=== PATIENT | male | born 1965 | race African-American/Black ===

== ENCOUNTER 2017-03-02 19:45 | Inpatient (IN) ==
[2017-03-02] MEDS ORDERED: DILTIAZEM 50 MG/10 ML VIAL IV ONE (19:54)
[2017-03-02] MEDS ORDERED: DILTIAZEM 50 MG/10 ML VIAL IV STA (20:00)
[2017-03-02] MEDS ORDERED: DILTIAZEM 100 MG VIAL.ADD IV ONE (20:00)
[2017-03-02] MEDS ORDERED: DILTIAZEM INJ 100 MG in SODIUM CHLORIDE 0.9% 100 ML IV SCH ×2 (20:00→23:45)
--- NOTE | 2017-03-02 20:00 | Emergency Department Note ---
Arrival - Arrival Chief Complaint: Arrhythmia/Palpitations ED Nursing Triage Note: Pt arrives via ems from home with complaints of heart racing since 1600. Pt has history of A fib. Ems administered adenosine 6/12/ 12mg with relief. Pt complains of chest pain and sob at time of triage. Denies any other complaints at this time. Mode of Arrival: Stretcher Limitations: No Limitations Source: Patient Time Seen by Provider: 03/02/17 19:50 - History of Present Illness HPI Narrative: The patient complains of palpitations with chest pain, shortness of breath and diaphoresis. This started around 1600 today. EMS noted elevated heart rate on arrival and they gave him 6, 12 and 12 of adenosine. The patient states this mostly relieved his chest pain and on arrival here he complained only of very mild chest pain. He had no nausea or vomiting. Patient has a history of atrial fibrillation and sees Dr. Payne. He is on amiodarone and Eliquis. His last episode of atrial fibrillation was more than 6 months ago. He had to be electrically cardioverted at that time. It is not clear whether he has a history of CAD. He denies any stents but says he was told at one time in the past that he might have had a light heart attack. He has a history of hypertension. He denies diabetes or high cholesterol. He is a former smoker. Allergies/Adverse Reactions: Allergies Allergy/AdvReac Type Severity Reaction Status Date / Time No Known Allergies Allergy Unverified 03/02/17 19:50 Home Medications: Home Medications Medication Instructions Recorded Confirmed Type Amiodarone HCl [Amiodarone HCl] 200 mg PO DAILY 11/18/14 11/18/14 History Apixaban [Eliquis] 5 mg PO BID 11/18/14 11/18/14 History Aspirin [Children's Aspirin] 81 mg PO QAM 11/18/14 03/02/17 History Magnesium Chloride [Slow Mag] 128 mg PO TID 11/18/14 03/02/17 History Ranitidine Tab [Zantac Tab] 150 mg PO BID 11/18/14 03/02/17 History Albuterol Sulfate [Proair HFA] 2 puff INH Q6H PRN 03/02/17 03/02/17 History Review of System - Review of System 12 point system: reviewed and no additional remarkable complaints except as stated - Review of System Constitutional: Present: diaphoresis Respiratory: Present: respiratory distress Cardiovascular: Present: chest pain, palpitations, dyspnea on exertion. Absent : edema, syncope Gastrointestinal: Absent: nausea, vomiting Medical,Surgical,& Family Hx - Medical History Cardio: History of: Cardiac Dysrhythmia, Hypertension - Surgical History Surgical History: noncontributory - Family History Family History: noncontributory - Social History Smoking Status: Never smoker Frequency of Alcohol Use: None Type of Drug Use: None Exam Physical Examination: GENERAL: Alert. No acute distress. HEENT: Normocephalic and atraumatic. There is no nasal drainage. No pharyngeal erythema or exudate. NECK: Normal inspection. Supple. No lymphadenopathy or meningismus. LUNGS: No respiratory distress. Clear to auscultation bilaterally, no wheezes, rales or rhonchi. HEART: Irregular tachycardia. 2/6 systolic murmur. ABDOMEN: Soft, nontender and nondistended with normoactive bowel sounds. BACK: Normal inspection. SKIN: Color normal. Warm and dry. EXTREMITIES: Nontender. Normal range of motion. No pedal edema. NEUROLOGICAL/PSYCHIATRIC: Alert and oriented -3 with normal mood and affect. Cranial nerves normal. No motor or sensory deficit. Vital Signs: Vital Signs Temperature 98.3 F 03/02/17 19:45 Pulse Rate 169 H 03/02/17 19:45 Respiratory Rate 16 03/02/17 21:30 Blood Pressure 151/91 03/02/17 19:45 O2 Sat by Pulse Oximetry 100 03/02/17 22:04 Course - Reevaluation(s) Reevaluation #1: The patient was given a 20 mg bolus of diltiazem on arrival and this brought his heart rate down to 100-120. He feels much better and states his chest pain is completely resolved. I am starting him on a diltiazem infusion. Time: 20:07 Reevaluation #2: After further questioning, the patient now tells me he has been off the Eliquis and the amiodarone since around November. He is only taking an 81 mg aspirin as an anticoagulant and does not think that they started him on any other antiarrhythmic. I will give him 120 of Lovenox now. Time: 20:24 Reevaluation #3: The patient has maxed out on his diltiazem infusion at 15. He continues to have a heart rate between 130 and 150. His chest pain is still resolved and he is having no symptoms at all. I have discussed patient with Dr. Michelle. I will give him Lopressor 5 mg IV every 5 minutes 3 and 50 of metoprolol p.o. We will admit him to the CCU. Time: 22:21 Results - Labs CBC & BMP: 03/02/17 19:53 03/02/17 19:53 Lab Results: I have reviewed the patients labs Labs: Laboratory Tests 03/02/17 03/02/17 03/02/17 19:53 19:53 19:53 INR 1.0 Total Bilirubin < 0.39 AST 24 ALT 25 Troponin I < 0.015 Free T4 1.40 TSH 3rd Generation 0.567 - Impressions Chest x-ray shows cardiomegaly with mild CHF. EKG shows atrial fibrillation with rapid ventricular response at 179. Nonspecific ST and T-wave abnormality. Critical Care Time Total Critical Care Time: 30 Disposition Clinical Impression: Atrial fibrillation with rapid ventricular response Case discussed with: patient Disposition: Still a Patient Condition: Stable Time of Disposition: 22:22
[2017-03-02 20:11] LABS: Basophils % 0.5 % (0.0-0.8); Eosinophils # 0.2 10*3/uL (0.0-0.87); Eosinophils % 2.9 % (0.00-10.9); Hematocrit 42.9 VOL% (42.0-52.0); Hemoglobin 13.6 GM/DL (14.0-18.0); Immature Granulocytes % 0.4 %; Immature Granulocytes Absolute 0.03 #; Lymphocytes # 2.1 10*3/uL (1.4-4.0); Lymphocytes % 25.8 % (21.2-54.2); Mean Corpuscular HGB Conc 31.7 GM/DL (32-36); Mean Corpuscular Hemoglobin 27 PG (27-34); Monocytes # 0.7 10*3/uL (0.11-0.8); Monocytes % 9.2 % (1.7-12.7); Neutrophils % 61.2 % (38.7-73.9); Platelet Count 222 T/CUMM (130-400); Red Blood Count 5.11 MC/CUMM (3.8-5.5); Red Cell Distribution Width 13.1 % (9.3-17.3); White Blood Count 8.1 T/CUMM (4-12)
[2017-03-02 20:19] LABS: PT Patient Result 10.7 SECS; Partial Thromboplastin Time 26.8 SECS (0-40)
[2017-03-02 20:26] LABS: Free T4 (Free Thyroxine) 1.4 NG/DL (0.76-1.46)
[2017-03-02] MEDS ORDERED: ENOXAPARIN 120 MG/0.8 ML SYRINGE SUBCUT STA (20:26)
[2017-03-02 20:32] LABS: Alanine Aminotransferase 25 U/L (16-61); Albumin 3.3 G/DL (3.4-5.0); Alkaline Phosphatase 115 U/L (45-117); Aspartate Amino Transferase 24 U/L (0-37); Bilirubin,Total < 0.39 MG/DL (0.2-1.0); Blood Urea Nitrogen 11 MG/DL (7-18); Calcium 8.3 MG/DL (8.5-10.1); Glucose 101 MG/DL (74-106); Osmolality,Calculated 281.1 MOS/KG (273-304); Potassium 3.5 MMOL/L (3.5-5.1); Sodium 142 MMOL/L (136-145); Thyroid Stimulating Hormone 0.567 uIU/ml (0.358-3.74); Total Protein 7.7 G/DL (6.4-8.3); Troponin I Only < 0.015 NG/ML (0.00-0.045)
[2017-03-02] MEDS ORDERED: ENOXAPARIN 120 MG/0.8 ML SYRINGE SUBCUT ONE (20:43)
[2017-03-02 21:00] LABS: Barbiturates Screen,Urine Negative (Negative); Benzodiazepines Screen,Urine Negative (Negative); Cannabinoid Screen,Urine Negative (Negative); Opiate Screen,Urine Negative (Negative); Phencyclidine Screen,Urine Negative (Negative)
[2017-03-02] MEDS ORDERED: METOPROLOL SUCCINATE XL 50 MG TABLET PO ONE (22:17)
[2017-03-02] MEDS ORDERED: METOPROLOL TARTRATE 5 MG/5 ML VIAL IV ONE ×4 (22:28→23:45)
[2017-03-02] MEDS ORDERED: METOPROLOL TARTRATE 50 MG TABLET ONE (22:28)
[2017-03-02] MEDS: METOPROLOL TARTRATE 5 MG/5 ML VIAL IV SCH ×3 (22:30→22:55)
[2017-03-02] MEDS ORDERED: MAGNESIUM SULF RIDER 2 GM in PREMIX 1 EACH IV PRN (23:28)
[2017-03-02] MEDS ORDERED: ONDANSETRON 4 MG/2 ML VIAL IV PRN (23:28)
[2017-03-02] MEDS ORDERED: MAGNESIUM SULF RIDER 4 GM in PREMIX 1 EACH IV PRN (23:28)
--- NOTE | 2017-03-02 23:40 | Cardiology History & Physical ---
Assessment and Plan (1) Chest pain Status: Acute Assessment and plan: 1. 52-year-old BMI 41 bpm with hypertension, LILI (reports using CPAP regularly but "it falls off my face during the night a lot "), reported remote stroke in 2004 (unilateral numbness and weakness lasting 1-3 days), probable nonsignificant CAD (he had a cath many years ago but no knowledge of having a stent or intervention), and known atrial fibrillation with RVR episodes (last admitted here with a 2013) who developed dyspnea followed by chest discomfort "sharp pains" between 5 and 6 PM tonight with resolution of his chest pain in the emergency room where he was found to have RVR 2. He is on diltiazem infusion, and rate is doing reasonably well after adding metoprolol IV and p.o. with rate in the 120 range currently asymptomatic 3. He reports his Eliquis was stopped in [place] a few months ago "I said I do not need it anymore and gave me an aspirin"; he has been given Lovenox, but will consider restarting Eliquis tomorrow 4. Check follow-up cardiac panel, TSH, and electrolytes. 5. Close observation in the CCU given his fairly high rate above 170 bpm in the ER and history of "one time it was so fast that shocked me" Current Visit: Yes (2) Atrial fibrillation with rapid ventricular response Status: Acute Current Visit: Yes (3) HTN (hypertension) Status: Acute Current Visit: Yes (4) LILI (obstructive sleep apnea) Status: Acute Current Visit: Yes History of Present Illness Chief complaint: sob History of present illness: Mr. Montenegro is a 52 year old male who was in his usual state of health until 5- 6 PM this evening developed a "hotness" and noticed he had a heart rate in the 130s range on his blood pressure check. He then developed sharp chest pains which did not resolve until he got the emergency room at treatment. He did not of presyncope syncope. He does not have bleeding problems. He was doing fine until this evening. He was taken off amiodarone many months ago and reportedly was taken off Eliquis a few months ago and Luis. He saw Dr. Payne a couple years ago. Home Medications Medication Instructions Recorded Confirmed Type Amiodarone HCl [Amiodarone HCl] 200 mg PO DAILY 11/18/14 11/18/14 History Apixaban [Eliquis] 5 mg PO BID 11/18/14 11/18/14 History Aspirin [Children's Aspirin] 81 mg PO QAM 11/18/14 03/02/17 History Magnesium Chloride [Slow Mag] 128 mg PO TID 11/18/14 03/02/17 History Ranitidine Tab [Zantac Tab] 150 mg PO BID 11/18/14 03/02/17 History Albuterol Sulfate [Proair HFA] 2 puff INH Q6H PRN 03/02/17 03/02/17 History Allergies Allergy/AdvReac Type Severity Reaction Status Date / Time No Known Allergies Allergy Unverified 03/02/17 19:50 Medical,Surgical,& Family Hx - Medical History Cardio: History of: Cardiac Dysrhythmia, Hypertension - Social History Smoking Status: Never smoker Frequency of Alcohol Use: None Type of Drug Use: None Cardiology Physical Exam - Constitutional Vitals: Vital Signs Temp Pulse Resp BP Pulse Ox 98.3 F 114 H 17 98/58 99 03/02/17 19:45 03/02/17 23:06 03/02/17 23:06 03/02/17 23:06 03/02/17 23:06 Intake and Output 03/02/17 03/02/17 03/02/17 07:59 15:59 23:59 Intake Total 30 / 30 Balance 30 / 30 Intake: IV 30 / 30 Cardizem Inj 100 mg In Ns 30 / 30 100 ml @ 5 MG/HR 5 mls/ hr IV TITRATE [facility] Rx#: [id number] Other: Weight 117.934 kg Patient Weight 03/02/17 23:59 Weight 117.934 kg General appearance: no acute distress, over weight - Head Head exam: Present: normal inspection, normocephalic, atraumatic - ENT ENT exam: Present: normal exam - Respiratory Respiratory exam: Present: clear to auscultation bilaterally. Absent: stridor, wheezes - Cardiovascular Cardiovascular exam: Present: irregular rhythm, tachycardia. Absent: diastolic murmur, systolic murmur - GI/Abdominal GI/Abdominal exam: Present: soft. Absent: tenderness - Extremities Exam Extremities exam: Absent: edema - Neurological Exam Neurological exam: Present: alert, oriented X3 Result/EKG - Labs CBC & BMP: 03/02/17 19:53 03/02/17 19:53 Labs: Laboratory Results - last 24 hr 03/02/17 03/02/17 03/02/17 19:53 19:53 19:53 WBC 8.1 RBC 5.11 Hgb 13.6 L Hct 42.9 MCV 84.0 L MCH 27 MCHC 31.7 L RDW 13.1 Plt Count 222 MPV 11.0 Neut % (Auto) 61.2 Lymph % (Auto) 25.8 [place] % (Auto) 9.2 Eos % (Auto) 2.9 Baso % (Auto) 0.5 Neut # (Auto) 5.0 Lymph # (Auto) 2.1 [place] # (Auto) 0.7 Eos # (Auto) 0.2 Baso # (Auto) 0.0 Immature Gran % 0.4 Nucleated RBC % 0.0 Immature Gran # 0.03 Nucleated RBCs # 0.00 INR 1.0 PT Patient/Control Mix 10.7 Circ Anticoag PTT 26.8 Sodium Potassium Chloride Carbon Dioxide Anion Gap BUN Creatinine GFR Calculation BUN/Creatinine Ratio Glucose Calculated Osmolality Calcium Magnesium 2.0 Total Bilirubin AST ALT Alkaline Phosphatase Troponin I Total Protein Albumin Globulin Albumin/Globulin Ratio Free T4 1.40 TSH 3rd Generation Urine Opiates Screen Ur Barbiturates Screen Ur Phencyclidine Scrn U Amphetamine/Methamph U Benzodiazepines Scrn U Cocaine Metab Screen U Cannabinoids Screen 03/02/17 03/02/17 19:53 19:53 WBC RBC Hgb Hct MCV MCH MCHC RDW Plt Count MPV Neut % (Auto) Lymph % (Auto) [place] % (Auto) Eos % (Auto) Baso % (Auto) Neut # (Auto) Lymph # (Auto) [place] # (Auto) Eos # (Auto) Baso # (Auto) Immature Gran % Nucleated RBC % Immature Gran # Nucleated RBCs # INR PT Patient/Control Mix Circ Anticoag PTT Sodium 142 Potassium 3.5 Chloride 109 H Carbon Dioxide 25 Anion Gap 11.5 BUN 11 Creatinine 1.20 GFR Calculation 105 BUN/Creatinine Ratio 9.00 Glucose 101 Calculated Osmolality 281.1 Calcium 8.3 L Magnesium Total Bilirubin < 0.39 AST 24 ALT 25 Alkaline Phosphatase 115 Troponin I < 0.015 Total Protein 7.7 Albumin 3.3 L Globulin 4.4 H Albumin/Globulin Ratio 0.7 L Free T4 TSH 3rd Generation 0.567 Urine Opiates Screen Negative Ur Barbiturates Screen Negative Ur Phencyclidine Scrn Negative U Amphetamine/Methamph Negative U Benzodiazepines Scrn Negative U Cocaine Metab Screen Negative U Cannabinoids Screen Negative
[2017-03-03] MEDS: DILTIAZEM INJ 100 MG in SODIUM CHLORIDE 0.9% 100 ML IV SCH ×2 (02:10→13:07)
[2017-03-03 05:47] LABS: Alanine Aminotransferase 20 U/L (16-61); Albumin 2.8 G/DL (3.4-5.0); Alkaline Phosphatase 101 U/L (45-117); Aspartate Amino Transferase 20 U/L (0-37); Blood Urea Nitrogen 9 MG/DL (7-18); Calcium 8.2 MG/DL (8.5-10.1); Free T4 (Free Thyroxine) 1.34 NG/DL (0.76-1.46); Glucose 89 MG/DL (74-106); Potassium 4.1 MMOL/L (3.5-5.1); Sodium 143 MMOL/L (136-145); Thyroid Stimulating Hormone 0.696 uIU/ml (0.358-3.74); Total Protein 6.3 G/DL (6.4-8.3)
[2017-03-03 05:51] LABS: Troponin I Only 0.055 NG/ML (0.00-0.045)
--- NOTE | 2017-03-03 07:16 | EKG Report ---
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
--- NOTE | 2017-03-03 07:40 | EKG Report ---
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
[2017-03-03] MEDS ORDERED: CITALOPRAM 20 MG TABLET PO PRN (08:05)
--- NOTE | 2017-03-03 08:13 | XRay Report ---
XR chest 1V portable Indication: Chest pain Comparison: 27 January 2014 Findings: The heart and mediastinum are normal in size and configuration. The pulmonary vascularity is slightly increased. No lung infiltrates, effusions, pneumothorax or other abnormality is demonstrated. Impression: Slightly increased pulmonary vascularity, could indicate mild cardiac decompensation. PROCEDURE INTERPRETED AT [facility] DEPARTMENT OF RADIOLOGY Final Report Signed by: Dr. Anders Leggett
[2017-03-03] MEDS: PANTOPRAZOLE 40 MG TABLET PO SCH (09:08)
[2017-03-03] MEDS: METOPROLOL SUCCINATE XL 100 MG TABLET PO SCH (09:08)
[2017-03-03] MEDS: MAGNESIUM CHLORIDE 64 MG TABLET PO SCH ×3 (09:09→20:36)
[2017-03-03] MEDS: APIXABAN 5 MG TABLET PO SCH ×2 (09:09→20:36)
--- NOTE | 2017-03-03 09:30 | Cardiology Progress Note ---
Assessment and Plan (1) Chest pain Status: Acute Assessment and plan: 1. 52-year-old BMI 41 bpm with hypertension, LILI (reports using CPAP regularly but "it falls off my face during the night a lot "), reported remote stroke in 2004 (unilateral numbness and weakness lasting 1-3 days), probable nonsignificant CAD (he had a cath many years ago but no knowledge of having a stent or intervention), and known atrial fibrillation with RVR episodes (last admitted here with a 2014) who developed dyspnea followed by chest discomfort "sharp pains" between 5 and 6 PM tonight with resolution of his chest pain in the emergency room where he was found to have RVR 2. He is on diltiazem infusion, and rate is doing reasonably well after adding metoprolol IV and p.o. with rate in the 120 range currently asymptomatic 3. He reports his Eliquis was stopped in [place] a few months ago "I said I do not need it anymore and gave me an aspirin"; he has been given Lovenox, but will consider restarting Eliquis tomorrow 4. Check follow-up cardiac panel, TSH, and electrolytes. 5. Close observation in the CCU given his fairly high rate above 170 bpm in the ER and history of "one time it was so fast that shocked me" March 03, 2017 update: 1. Mr. Montenegro is still in atrial fibrillation with RVR but rate is more controlled in the low 100s (170s in the ER) 2. He ruled out for myocardial infarction is still on diltiazem infusion. 3. Increase beta-luis carlos to Toprol 100 mg twice daily starting now with plans to wean off diltiazem as able 4. Transfer to telemetry given he appears to be stable at this time. 5. Eliquis 5 mg twice daily; this is listed on his home medications but he reports that in [place] that took him off of it. It appears he needs to take it unless he has some bleeding problem, etc. He reports history of stroke and describes some transient unilateral symptoms in 2004. 6. His chest pain that he came with is resolved and he ruled out for myocardial infarction; is difficult to say if he has CAD, but he reports having a heart catheterization many years ago and does not recall having a stent and certainly has not had bypass surgery. Current Visit: Yes (2) Atrial fibrillation with rapid ventricular response Status: Acute Current Visit: Yes (3) HTN (hypertension) Status: Acute Current Visit: Yes (4) LILI (obstructive sleep apnea) Status: Acute Current Visit: Yes Cardiology - PN: Subj Interval history: Mr. Montenegro is feeling much better and has no complaints this morning. He has had no chest discomfort during the night of this morning. His RVR is more controlled in the low 100s. Exam (Progress Note) - Constitutional Vitals: Period Temp Pulse Resp BP Sys/Cosme Pulse Ox Last 24 Hr 97.0 F-98.3 F 79-169 12-24 76-151/44-95 99-100 General appearance: no acute distress, over weight - Head Head exam: Present: normal inspection, normocephalic, atraumatic - Neck Neck exam: Present: normal inspection - Respiratory Respiratory exam: Present: rales. Absent: stridor, wheezes - Cardiovascular Cardiovascular exam: Present: irregular rhythm, tachycardia. Absent: diastolic murmur, rubs - GI/Abdominal GI/Abdominal exam: Present: soft. Absent: tenderness - Extremities Exam Extremities exam: Present: edema (Only trace edema) Result/EKG - Labs CBC & BMP: 03/02/17 19:53 03/03/17 04:21 Labs: Laboratory Results - last 24 hr 03/02/17 03/02/17 03/02/17 19:53 19:53 19:53 WBC 8.1 RBC 5.11 Hgb 13.6 L Hct 42.9 MCV 84.0 L MCH 27 MCHC 31.7 L RDW 13.1 Plt Count 222 MPV 11.0 Neut % (Auto) 61.2 Lymph % (Auto) 25.8 [place] % (Auto) 9.2 Eos % (Auto) 2.9 Baso % (Auto) 0.5 Neut # (Auto) 5.0 Lymph # (Auto) 2.1 [place] # (Auto) 0.7 Eos # (Auto) 0.2 Baso # (Auto) 0.0 Immature Gran % 0.4 Nucleated RBC % 0.0 Immature Gran # 0.03 Nucleated RBCs # 0.00 INR 1.0 PT Patient/Control Mix 10.7 Circ Anticoag PTT 26.8 Sodium Potassium Chloride Carbon Dioxide Anion Gap BUN Creatinine GFR Calculation BUN/Creatinine Ratio Glucose Calculated Osmolality Calcium Magnesium 2.0 Total Bilirubin AST ALT Alkaline Phosphatase Total Creatine Kinase CK-MB (CK-2) Troponin I Total Protein Albumin Globulin Albumin/Globulin Ratio Free T4 1.40 TSH 3rd Generation Urine Opiates Screen Ur Barbiturates Screen Ur Phencyclidine Scrn U Amphetamine/Methamph U Benzodiazepines Scrn U Cocaine Metab Screen U Cannabinoids Screen 03/02/17 03/02/17 03/03/17 19:53 19:53 04:21 WBC RBC Hgb Hct MCV MCH MCHC RDW Plt Count MPV Neut % (Auto) Lymph % (Auto) [place] % (Auto) Eos % (Auto) Baso % (Auto) Neut # (Auto) Lymph # (Auto) [place] # (Auto) Eos # (Auto) Baso # (Auto) Immature Gran % Nucleated RBC % Immature Gran # Nucleated RBCs # INR PT Patient/Control Mix Circ Anticoag PTT Sodium 142 143 Potassium 3.5 4.1 Chloride 109 H 110 H Carbon Dioxide 25 24 Anion Gap 11.5 13.1 BUN 11 9 Creatinine 1.20 0.90 GFR Calculation 105 148 BUN/Creatinine Ratio 9.00 10.00 Glucose 101 89 Calculated Osmolality 281.1 282.0 Calcium 8.3 L 8.2 L Magnesium 2.0 Total Bilirubin < 0.39 0.80 AST 24 20 ALT 25 20 Alkaline Phosphatase 115 101 Total Creatine Kinase 247 CK-MB (CK-2) 3.0 Troponin I < 0.015 0.055 H D Total Protein 7.7 6.3 L Albumin 3.3 L 2.8 L Globulin 4.4 H 3.5 Albumin/Globulin Ratio 0.7 L 0.8 L Free T4 1.34 TSH 3rd Generation 0.567 0.696 Urine Opiates Screen Negative Ur Barbiturates Screen Negative Ur Phencyclidine Scrn Negative U Amphetamine/Methamph Negative U Benzodiazepines Scrn Negative U Cocaine Metab Screen Negative U Cannabinoids Screen Negative
--- NOTE | 2017-03-03 12:06 | ECHO Report ---
Oscar Montenegro Exam Date: 03/03/2017 10:53 Referring Physician: Technologist: Zonia Aranda Age: 52 Ht (in): 67 Wt (lb): 260 Gender: M Exam Location: [facility] Echo Indications: A Fib, chest pain, HTN, LILI BP: 100 / 65 HR: 125 Rhythm: Atrial fibrillation Technical Quality: IMPRESSIONS Normal chamber sizes 1+ concentric LVH Hyperdynamic LV systolic function with ejection fraction is will be 70% Aortic sclerosis without stenosis 1+ tricuspid regurgitation with RVSP 32 mmHg plus RAP Irregular rhythm noted MEASUREMENTS (Male / Female) Normal Values 2D ECHO LV Diastolic Diameter PLAX 3.8 cm 4.2 - 5.9 / 3.9 - 5.3 cm LV Systolic Diameter PLAX 2.5 cm LV Fractional Shortening PLAX 32.4 % IVS Diastolic Thickness 1.1 cm 0.6 - 1.0 / 0.6 - 0.9 cm LVPW Diastolic Thickness 1.1 cm 0.6 - 1.0 / 0.6 - 0.9 cm RV Internal Dim ED PLAX 2.4 cm Aortic Root Diameter 2.6 cm LA Systolic Diameter LX 3.4 cm 3.0 - 4.0 / 2.7 - 3.8 cm DOPPLER TR Peak Velocity 282.0 cm/s TR Peak Gradient 31.8 mmHg FINDINGS Left Ventricle Normal left ventricular cavity size. Mild concentric left ventricular hypertrophy with diastolic dysfunction. Left ventricular ejection fraction is estimated at Right Ventricle Normal right ventricular size. Right Atrium Normal right atrial size. Left Atrium Normal left atrial size. Mitral Valve Morphologically normal mitral valve. Trace mitral valve regurgitation. Aortic Valve The aortic valve is trileaflet, delicate and has normal motion. Tricuspid Valve Morphologically normal tricuspid valve.tricuspid regurgitation velocities suggest a PAP of 31.1 mmHg + RAP. Trace tricuspid valve regurgitation. Pulmonic Valve Morphologically normal pulmonic valve. Pericardium No pericardial effusion. Aorta Normal size aortic root and proximal ascending aorta. Dexter Michelle (Electronically Signed) Final Date: 03 March 2017 12:05
[2017-03-03] MEDS ORDERED: ALBUTEROL 2.5 MG/3 ML NEB RESP TX PRN (13:00)
[2017-03-04] MEDS: DILTIAZEM INJ 100 MG in SODIUM CHLORIDE 0.9% 100 ML IV SCH ×2 (01:51→06:08)
[2017-03-04] MEDS: METOPROLOL SUCCINATE XL 100 MG TABLET PO SCH (08:06)
[2017-03-04] MEDS: PANTOPRAZOLE 40 MG TABLET PO SCH (08:06)
[2017-03-04] MEDS: APIXABAN 5 MG TABLET PO SCH ×2 (08:06→20:25)
[2017-03-04] MEDS: MAGNESIUM CHLORIDE 64 MG TABLET PO SCH ×3 (08:06→20:24)
[2017-03-04] MEDS: DILTIAZEM CD 120 MG CAPSULE PO SCH ×2 (09:28→20:56)
[2017-03-04] MEDS: FUROSEMIDE 40 MG/4 ML VIAL IV SCH (09:28)
--- NOTE | 2017-03-04 09:31 | Cardiology Progress Note ---
Assessment and Plan (1) Chest pain Status: Acute Assessment and plan: 1. 52-year-old BMI 41 bpm with hypertension, LILI (reports using CPAP regularly but "it falls off my face during the night a lot "), reported remote stroke in 2004 (unilateral numbness and weakness lasting 1-3 days), probable nonsignificant CAD (he had a cath many years ago but no knowledge of having a stent or intervention), and known atrial fibrillation with RVR episodes (last admitted here with a 2014) who developed dyspnea followed by chest discomfort "sharp pains" between 5 and 6 PM tonight with resolution of his chest pain in the emergency room where he was found to have RVR 2. He is on diltiazem infusion, and rate is doing reasonably well after adding metoprolol IV and p.o. with rate in the 120 range currently asymptomatic 3. He reports his Eliquis was stopped in [place] a few months ago "I said I do not need it anymore and gave me an aspirin"; he has been given Lovenox, but will consider restarting Eliquis tomorrow 4. Check follow-up cardiac panel, TSH, and electrolytes. 5. Close observation in the CCU given his fairly high rate above 170 bpm in the ER and history of "one time it was so fast that shocked me" March 03, 2017 update: 1. Mr. Montenegro is still in atrial fibrillation with RVR but rate is more controlled in the low 100s (170s in the ER) 2. He ruled out for myocardial infarction is still on diltiazem infusion. 3. Increase beta-luis carlos to Toprol 100 mg twice daily starting now with plans to wean off diltiazem as able 4. Transfer to telemetry given he appears to be stable at this time. 5. Eliquis 5 mg twice daily; this is listed on his home medications but he reports that in [place] that took him off of it. It appears he needs to take it unless he has some bleeding problem, etc. He reports history of stroke and describes some transient unilateral symptoms in 2004. 6. His chest pain that he came with is resolved and he ruled out for myocardial infarction; is difficult to say if he has CAD, but he reports having a heart catheterization many years ago and does not recall having a stent and certainly has not had bypass surgery. March 04, 2017 update: 1. Mr. Montenegro still has uncontrolled RVR despite high-dose Toprol and maxed out diltiazem infusion with heart rate in the 110s-130s on average. 2. Add diltiazem CD 120 twice daily 3. Lasix 1 IV; he may need further diuresis; he is asymptomatic at rest but gets short of breath when he moves around. 4. Continue diltiazem infusion with hopes to wean off by tomorrow 5. Continue Eliquis given his history of probable CVA in the past, and atrial fibrillation 6. LILI; I have asked him to bring his CPAP from home which she says should not be a problem. Current Visit: Yes (2) Atrial fibrillation with rapid ventricular response Status: Acute Current Visit: Yes (3) HTN (hypertension) Status: Acute Current Visit: Yes (4) LILI (obstructive sleep apnea) Status: Acute Current Visit: Yes Cardiology - PN: Subj Interval history: Mr. Montenegro is feeling good this morning with no chest pain. He does get a little short of breath when he moves around. His rate has not been well controlled in the low 100s-140 range overnight. Exam (Progress Note) - Constitutional Vitals: Period Temp Pulse Resp BP Sys/Cosme Pulse Ox Last 24 Hr 97.0 F-98.4 F 64-137 12-20 100-147/53-84 95-100 General appearance: no acute distress, over weight - Head Head exam: Present: normal inspection, normocephalic, atraumatic - Neck Neck exam: Present: normal inspection - Respiratory Respiratory exam: Present: rales. Absent: wheezes - Cardiovascular Cardiovascular exam: Present: irregular rhythm, tachycardia. Absent: diastolic murmur, rubs - GI/Abdominal GI/Abdominal exam: Present: soft. Absent: tenderness - Extremities Exam Extremities exam: Absent: edema Result/EKG - Labs CBC & BMP: 03/02/17 19:53 03/03/17 04:21
[2017-03-05] MEDS: FUROSEMIDE 40 MG/4 ML VIAL IV SCH (09:25)
[2017-03-05] MEDS: MAGNESIUM CHLORIDE 64 MG TABLET PO SCH ×3 (09:25→21:21)
[2017-03-05] MEDS: APIXABAN 5 MG TABLET PO SCH ×2 (09:25→21:20)
[2017-03-05] MEDS: PANTOPRAZOLE 40 MG TABLET PO SCH (09:26)
[2017-03-05] MEDS: METOPROLOL SUCCINATE XL 100 MG TABLET PO SCH (09:29)
[2017-03-05] MEDS: DILTIAZEM INJ 100 MG in SODIUM CHLORIDE 0.9% 100 ML IV SCH (09:30)
[2017-03-05] MEDS: DILTIAZEM CD 120 MG CAPSULE PO SCH (09:30)
[2017-03-05 11:05] LABS: Basophils % 0.3 % (0.0-0.8); Eosinophils # 0.2 10*3/uL (0.0-0.87); Eosinophils % 2.2 % (0.00-10.9); Hemoglobin 14.6 GM/DL (14.0-18.0); Immature Granulocytes % 0.3 %; Immature Granulocytes Absolute 0.03 #; Lymphocytes # 1.7 10*3/uL (1.4-4.0); Lymphocytes % 18.7 % (21.2-54.2); Mean Corpuscular HGB Conc 32.4 GM/DL (32-36); Mean Corpuscular Hemoglobin 27 PG (27-34); Mean Corpuscular Volume 83.5 FL (87-102); Mean Platelet Volume 11.1 FL (9.6-12.0); Monocytes # 0.6 10*3/uL (0.11-0.8); Monocytes % 6.9 % (1.7-12.7); Neutrophils # 6.3 10*3/uL (1.4-7.4); Neutrophils % 71.6 % (38.7-73.9); Platelet Count 261 T/CUMM (130-400); Red Blood Count 5.39 MC/CUMM (3.8-5.5); Red Cell Distribution Width 13.2 % (9.3-17.3); White Blood Count 8.8 T/CUMM (4-12)
[2017-03-05 11:43] LABS: Calcium 8.7 MG/DL (8.5-10.1); Osmolality,Calculated 275.7 MOS/KG (273-304); Potassium 4.1 MMOL/L (3.5-5.1)
[2017-03-05] MEDS ORDERED: METOPROLOL SUCCINATE XL 50 MG TABLET PO SCH (12:27)
[2017-03-05] MEDS ORDERED: METOPROLOL SUCCINATE XL 25 MG TABLET PO SCH (12:28)
--- NOTE | 2017-03-05 12:30 | Cardiology Progress Note ---
<Hayley Grant E - Last Filed: 03/05/17 12:06> Assessment and Plan - Time spent with patient Time spent with patient: Less than 30 minutes (1) Atrial fibrillation with rapid ventricular response Status: Acute Assessment and plan: See plan of care listed below. Current Visit: Yes (2) Chest pain Status: Acute Assessment and plan: See plan of care listed below. Current Visit: Yes (3) Coronary artery disease Status: Chronic Assessment and plan: See plan of care listed below. Current Visit: Yes (4) HTN (hypertension) Status: Chronic Assessment and plan: See plan of care listed below. Current Visit: Yes (5) LILI (obstructive sleep apnea) Status: Chronic Assessment and plan: See plan of care listed below. Current Visit: Yes Cardiology - PN: Subj Interval history: Pocket Machine Operator: Dr. Payne SUMMARY: Mr. Montenegro is a 52-year-old -Maldivian male with a history of hypertension, obstructive sleep apnea, remote stroke in 2004, coronary artery disease status post stent in 2004 per records, and known paroxysmal atrial fibrillation since 2004. He was last hospitalized here in 2013 but has been living in [place] for the past several months. He was admitted on 03/02/2017 for complaints of dyspnea followed by sharp chest pains. Upon arrival to the emergency room, his chest pain resolved and he was found to be in A. fib with RVR. His Eliquis was stopped by his physicians in [place] a few months ago but has since been resumed. MARCH 05, 2017 UPDATE: His RVR has been difficult to control; he has been on high -dose Toprol and maxed out diltiazem infusion and continued to have heart rates in the 110s to 130s. Oral diltiazem was added and he subsequently converted to normal sinus rhythm on 03/04/2017 around 10:56 AM and has been in sinus bradycardia, asymptomatic, since that time. AM meds were held. Will decrease dose of beta luis carlos and continue to monitor. ASSESSMENT/PLAN: 1. ATRIAL FIBRILLATION WITH RVR - Now in sinus bradycardia with rates in the 50s. Mr. Montenegro reports his heart rate usually runs 55-60. BB and CCB were held this morning due to bradycardia and hypotension. Will decrease his dose of beta luis carlos and continue to monitor. Hopefully he will be able to tolerate his evening dose of Cardizem. 2. CHEST PAIN - His chest pain that he came with is resolved and he ruled out for myocardial infarction; is difficult to say if he has CAD, but he reports having a heart catheterization many years ago and does not recall having a stent and certainly has not had bypass surgery. 3. CORONARY ARTERY DISEASE - History of stent placement in 2004 per records. Remote history of [facility] around 2012 which demonstrated mild CAD. No cath report is available to confirm. 4. HYPERTENSION - Currently well controlled with occasional low readings. Will continue to monitor and adjust accordingly. 5. OBSTRUCTIVE SLEEP APNEA - Continue CPAP while sleeping. Exam (Progress Note) - Constitutional Vitals: Period Temp Pulse Resp BP Sys/Cosme Pulse Ox Last 24 Hr 97.3 F-98.4 F 50-54 16-20 83-109/45-57 95-100 Exam: General: Present: Appears Well, No Apparent Distress. Pleasant and cooperative. HEENT: Present: PERRL, Normocephaly, atraumatic. Mucus Membranes Moist. No jaundice noted. Conjunctiva moist and clear. Neck: Present: Supple Neck, Midline Trachea, No Masses, No Bruit, No tenderness Cardiac: Present: Regular Rate and Rhythm, No Murmur Lungs: Present: scant bibasilar rales, otherwise clear to auscultation bilaterally, no wheezes, rhonchi. Neuro: Present: Awake, alert, and oriented x3. Moves all extremities well without hemiparesis or paralysis. Grossly Intact. Absent: Resting Tremor, Essential Tremor Abdomen: Present: Soft, Active Bowel Sounds, No Masses, Non-Tender, nondistended. No abdominal bruit or thrill noted. Skin: Present: Clear. Absent: Rash, No skin breakdown. Back: Normal inspection, no vertebral tenderness. Musculoskeletal: Present: No Fluid Collection, No Pain, Normal Range of Motion Extremities: Present: Normal Gait, No Clubbing, No Cyanosis, Upper Extr. Pulses 2+, Lower Extr. Pulses 2+, Trace pitting edema to BLE. Capillary refill less than 3 seconds. Result/EKG - Labs CBC & BMP: 03/05/17 10:37 03/05/17 10:37 Lab Results: I have reviewed the past 24 hour labs Labs: Laboratory Results - last 24 hr 03/05/17 03/05/17 10:37 10:37 WBC 8.8 RBC 5.39 Hgb 14.6 Hct 45.0 MCV 83.5 L MCH 27 MCHC 32.4 RDW 13.2 Plt Count 261 MPV 11.1 Neut % (Auto) 71.6 Lymph % (Auto) 18.7 L [place] % (Auto) 6.9 Eos % (Auto) 2.2 Baso % (Auto) 0.3 Neut # (Auto) 6.3 Lymph # (Auto) 1.7 [place] # (Auto) 0.6 Eos # (Auto) 0.2 Baso # (Auto) 0.0 Immature Gran % 0.3 Nucleated RBC % 0.0 Immature Gran # 0.03 Nucleated RBCs # 0.00 Sodium 138 Potassium 4.1 Chloride 103 Carbon Dioxide 31 Anion Gap 8.1 BUN 18 Creatinine 1.20 GFR Calculation 105 BUN/Creatinine Ratio 15.00 Glucose 76 Calculated Osmolality 275.7 Calcium 8.7 - EKG EKG results: interpreted by me, sinus rhythm EKG shows: bradycardia <Case Zavala - Last Filed: 03/05/17 15:28> Cardiology - PN: Subj Interval history: Cardiology note Patient examined chart reviewed and discussed with nurse Hayley Grant NP. Currently sinus bradycardia and low blood pressure. Medications have been reduced. Patient does have a history of paroxysmal atrial fibrillation . On Eliquis 5 mg twice daily Blood pressure 100/60 in the left arm by me. O2 sat 99 Telemetry shows sinus heart rate of 54 Recent echo showed ejection fraction of 70% with normal LA size, aortic valve sclerosis, mild TR PA pressure 35 and no effusion Plan Metoprolol decreased 25 mg daily Cardizem decreased to 120 mg daily Monitor CPAP nightly Continue Eliquis 5 mg twice daily Exam (Progress Note) - Constitutional Vitals: Period Temp Pulse Resp BP Sys/Cosme Pulse Ox Last 24 Hr 97.3 F-98.4 F 50-54 18-20 83-109/45-57 95-100 Result/EKG - Labs CBC & BMP: 03/05/17 10:37 03/05/17 10:37 Labs: Laboratory Results - last 24 hr 03/05/17 03/05/17 10:37 10:37 WBC 8.8 RBC 5.39 Hgb 14.6 Hct 45.0 MCV 83.5 L MCH 27 MCHC 32.4 RDW 13.2 Plt Count 261 MPV 11.1 Neut % (Auto) 71.6 Lymph % (Auto) 18.7 L [place] % (Auto) 6.9 Eos % (Auto) 2.2 Baso % (Auto) 0.3 Neut # (Auto) 6.3 Lymph # (Auto) 1.7 [place] # (Auto) 0.6 Eos # (Auto) 0.2 Baso # (Auto) 0.0 Immature Gran % 0.3 Nucleated RBC % 0.0 Immature Gran # 0.03 Nucleated RBCs # 0.00 Sodium 138 Potassium 4.1 Chloride 103 Carbon Dioxide 31 Anion Gap 8.1 BUN 18 Creatinine 1.20 GFR Calculation 105 BUN/Creatinine Ratio 15.00 Glucose 76 Calculated Osmolality 275.7 Calcium 8.7
[2017-03-05] MEDS: ASCORBIC ACID 500 MG TABLET PO SCH ×2 (15:13→21:21)
[2017-03-05] MEDS ORDERED: ATORVASTATIN 20 MG TABLET PO SCH (21:00)
[2017-03-06] MEDS: DILTIAZEM INJ 100 MG in SODIUM CHLORIDE 0.9% 100 ML IV SCH (04:16)
[2017-03-06 05:22] LABS: Basophils % 0.3 % (0.0-0.8); Eosinophils # 0.3 10*3/uL (0.0-0.87); Hematocrit 40.8 VOL% (42.0-52.0); Immature Granulocytes % 0.6 %; Immature Granulocytes Absolute 0.05 #; Lymphocytes # 2.1 10*3/uL (1.4-4.0); Lymphocytes % 23.6 % (21.2-54.2); Mean Corpuscular HGB Conc 31.9 GM/DL (32-36); Mean Corpuscular Hemoglobin 27 PG (27-34); Mean Corpuscular Volume 83.8 FL (87-102); Mean Platelet Volume 11.6 FL (9.6-12.0); Monocytes # 0.9 10*3/uL (0.11-0.8); Monocytes % 9.6 % (1.7-12.7); Neutrophils # 5.5 10*3/uL (1.4-7.4); Neutrophils % 62.9 % (38.7-73.9); Platelet Count 230 T/CUMM (130-400); Red Blood Count 4.87 MC/CUMM (3.8-5.5); White Blood Count 8.8 T/CUMM (4-12)
[2017-03-06 05:54] LABS: Calcium 8.3 MG/DL (8.5-10.1); Magnesium 2.2 MG/DL (1.8-2.4); Osmolality,Calculated 277.5 MOS/KG (273-304); Potassium 3.6 MMOL/L (3.5-5.1); Risk Ratio 5.61; VLDL CHOLESTEROL 21.4 MG/DL
[2017-03-06] MEDS ORDERED: DILTIAZEM CD 120 MG CAPSULE PO SCH (09:00)
[2017-03-06] MEDS: APIXABAN 5 MG TABLET PO SCH (09:37)
[2017-03-06] MEDS: MAGNESIUM CHLORIDE 64 MG TABLET PO SCH (09:37)
[2017-03-06] MEDS: ASCORBIC ACID 500 MG TABLET PO SCH (09:37)
[2017-03-06] MEDS: PANTOPRAZOLE 40 MG TABLET PO SCH (09:38)
[2017-03-06] MEDS: FUROSEMIDE 40 MG/4 ML VIAL IV SCH (09:39)
[2017-03-06 11:37] VITALS: BP 130/76
--- NOTE | 2017-03-06 11:58 | Cardiology Progress Note ---
Yara Tracy April RN, am scribing for, and in the presence of, Case Zavala MD 11:58. Assessment and Plan (1) Atrial fibrillation with rapid ventricular response Status: Resolved Current Visit: Yes (2) Chest pain Status: Resolved Current Visit: Yes (3) Coronary artery disease Status: Chronic Current Visit: Yes (4) HTN (hypertension) Status: Chronic Current Visit: Yes (5) LILI (obstructive sleep apnea) Status: Chronic Current Visit: Yes Cardiology - PN: Subj Interval history: Regulatory Affairs Consultant: Dr. Payne SUMMARY: Mr. Montenegro is a 52-year-old -[place] male with a history of hypertension, obstructive sleep apnea, remote stroke in 2004, coronary artery disease status post stent in 2004 per records, and known paroxysmal atrial fibrillation since 2004. He was last hospitalized here in 2013 but has been living in [place] for the past several months. He was admitted on 03/02/2017 for complaints of dyspnea followed by sharp chest pains. Upon arrival to the emergency room, his chest pain resolved and he was found to be in A. fib with RVR. His Eliquis was stopped by his physicians in [place] a few months ago but has since been resumed. MARCH 05, 2017: His RVR has been difficult to control; he has been on high-dose Toprol and maxed out diltiazem infusion and continued to have heart rates in the 110s to 130s. Oral diltiazem was added and he subsequently converted to normal sinus rhythm on 03/04/2017 around 10:56 AM and has been in sinus bradycardia, asymptomatic, since that time. AM meds were held. Will decrease dose of beta luis carlos and continue to monitor. March 06, 2017: Mr. Montenegro is seen sitting up in bedside chair. He denies any chest pain, palpitations, or shortness of breath. He is now on Toprol 25 mg p.o. daily and Cardizem 120 mg p.o. daily as well as Eliquis 5 mg p.o. twice daily. shelter monitor currently shows sinus rhythm with heart rates in the 60s. Echocardiogram done March 03 ejection fraction of 70% with normal LA size, aortic valve sclerosis, mild TR PA pressure 35 and no effusion. Pressures have been stable, this morning it is 103/55. Lab data today: WBC 8.8 hemoglobin 13.0 hematocrit 40.8 Sodium 139 potassium 3.6 chloride 102 CO2 29 BUN 19 creatinine 1.30 Magnesium 2.2 Triglycerides 107 cholesterol 174 LDL 113 HDL 21.4 Impression: Currently sinus rhythm, history of paroxysmal atrial fibrillation Hypotension, medications were reduced yesterday, blood pressure is improved today Sleep apnea, use CPAP nightly History of CAD Dyslipidemia, currently treated with atorvastatin Cardiology addendum. Patient examined chart reviewed and discussed with nurse Vernell Livingston RN. No further atrial fibrillation. Telemetry shows steady sinus rhythm in the mid 50s. Patient is comfortable and wants to go home. Blood pressure 126/80 in the right arm by me. Plan Home today. CPAP mask nightlly. Use cane at all times for gait support. Continue Eliquis 5 mg twice daily Cardizem CD 120 mg daily Metoprolol 25 mg daily Office visit Dr. Payne with EKG in 2 weeks. Exam (Progress Note) - Constitutional Vitals: Period Temp Pulse Resp BP Sys/Cosme Pulse Ox Last 24 Hr 97.4 F-98.0 F 50-59 18-20 103-123/52-69 95-100 Exam: General: Present: Appears Well, No Apparent Distress. Pleasant and cooperative. HEENT: Present: PERRL, Normocephaly, atraumatic. Mucus Membranes Moist. No jaundice noted. Conjunctiva moist and clear. Neck: Present: Supple Neck, Midline Trachea, No Masses, No Bruit, No tenderness Cardiac: Present: Regular Rate and Rhythm, No Murmur Lungs: Present: scant bibasilar rales, otherwise clear to auscultation bilaterally, no wheezes, rhonchi. Neuro: Present: Awake, alert, and oriented x3. Moves all extremities well without hemiparesis or paralysis. Grossly Intact. Absent: Resting Tremor, Essential Tremor Abdomen: Present: Soft, Active Bowel Sounds, No Masses, Non-Tender, nondistended. No abdominal bruit or thrill noted. Skin: Present: Clear. Absent: Rash, No skin breakdown. Back: Normal inspection, no vertebral tenderness. Musculoskeletal: Present: No Fluid Collection, No Pain, Normal Range of Motion Extremities: Present: Normal Gait, No Clubbing, No Cyanosis, Upper Extr. Pulses 2+, Lower Extr. Pulses 2+, Trace pitting edema to BLE. Capillary refill less than 3 seconds. Result/EKG - Labs CBC & BMP: 03/06/17 04:29 03/06/17 04:29 Lab Results: I have reviewed the past 24 hour labs Labs: Laboratory Results - last 24 hr 03/05/17 03/05/17 03/06/17 10:37 10:37 04:29 WBC 8.8 8.8 RBC 5.39 4.87 Hgb 14.6 13.0 L Hct 45.0 40.8 L MCV 83.5 L 83.8 L MCH 27 27 MCHC 32.4 31.9 L RDW 13.2 13.0 Plt Count 261 230 MPV 11.1 11.6 Neut % (Auto) 71.6 62.9 Lymph % (Auto) 18.7 L 23.6 [place] % (Auto) 6.9 9.6 Eos % (Auto) 2.2 3.0 Baso % (Auto) 0.3 0.3 Neut # (Auto) 6.3 5.5 Lymph # (Auto) 1.7 2.1 [place] # (Auto) 0.6 0.9 H Eos # (Auto) 0.2 0.3 Baso # (Auto) 0.0 0.0 Immature Gran % 0.3 0.6 Nucleated RBC % 0.0 0.0 Immature Gran # 0.03 0.05 Nucleated RBCs # 0.00 0.00 Sodium 138 Potassium 4.1 Chloride 103 Carbon Dioxide 31 Anion Gap 8.1 BUN 18 Creatinine 1.20 GFR Calculation 105 BUN/Creatinine Ratio 15.00 Glucose 76 Calculated Osmolality 275.7 Calcium 8.7 Magnesium Triglycerides Cholesterol LDL Cholesterol VLDL Cholesterol HDL Cholesterol Heart Disease Risk Ratio 03/06/17 04:29 WBC RBC Hgb Hct MCV MCH MCHC RDW Plt Count MPV Neut % (Auto) Lymph % (Auto) [place] % (Auto) Eos % (Auto) Baso % (Auto) Neut # (Auto) Lymph # (Auto) [place] # (Auto) Eos # (Auto) Baso # (Auto) Immature Gran % Nucleated RBC % Immature Gran # Nucleated RBCs # Sodium 139 Potassium 3.6 Chloride 102 Carbon Dioxide 29 Anion Gap 11.6 BUN 19 H Creatinine 1.30 GFR Calculation 95 BUN/Creatinine Ratio 14.00 Glucose 87 Calculated Osmolality 277.5 Calcium 8.3 L Magnesium 2.2 Triglycerides 107 Cholesterol 174 LDL Cholesterol 113.0 VLDL Cholesterol 21.4 HDL Cholesterol 31 L Heart Disease Risk Ratio 5.61 - EKG EKG results: interpreted by me EKG shows: sinus rhythm ILucas Thomas, MD, personally performed the services described in this documentation, ascribed by Vernell Livingston RN in my presence, and it is both accurate and complete 158 .
--- NOTE | 2017-03-06 13:37 | Discharge Summary ---
Hospital Course - Hospital Course Hospital Course: Tent Finisher: Dr. Payne Mr. Montenegro is a 52-year-old -Mongolian male with a history of hypertension , obstructive sleep apnea (CPAP nightly), remote stroke in 2004, coronary artery disease status post stent in 2004 per records, and known paroxysmal atrial fibrillation since 2004. He was last hospitalized here in 2013 but has been living in [place] for the past several months. He was admitted on 2016 for complaints of dyspnea followed by sharp chest pains. Upon arrival to the emergency room, his chest pain resolved and he was found to be in A. fib with RVR. His Eliquis was stopped by his physicians in [place] a few months ago but has since been resumed. His RVR has been difficult to control; he has been on high-dose Toprol and diltiazem infusion and continued to have heart rates in the 110s to 130s. Oral diltiazem was added and he subsequently converted to normal sinus rhythm on 03/04/2017 around 10:56 AM and has been in sinus bradycardia, asymptomatic, since that time. Beta luis carlos dose was decreased. This morning Mr. Montenegro' remains in normal sinus rhythm with heart rates in the 60's. He is now on Toprol 25 mg p.o. daily and Cardizem 120 mg p.o. daily as well as Eliquis 5 mg p.o. twice daily. Echocardiogram done March 03 ejection fraction of 70% with normal LA size, aortic valve sclerosis, 1+ LVH , mild TR PA pressure 35 and no effusion. Lipid panel was obtained this hospitalization. LDL 113. Lipitor was added to patient's medication regimen as her LDL was not at goal. Lipid panel needs to be rechecked in approximately 6 weeks. Pressures have been stable, this morning it is 130/55 patient is anxious for discharge home. Having felt that he has not maximal medical therapy , he will be discharged home in stable condition. Patient has been given a follow-up appointment with Dr. Payne in 2 weeks with EKG and CBC. Patient verbalized understanding of discharge instructions and discharge medications. - Time spent with patient Time with patient DS: Greater than 30 minutes Diagnosis - Discharge Diagnosis (1) Coronary artery disease Status: Chronic (2) HTN (hypertension) Status: Chronic (3) LILI (obstructive sleep apnea) Status: Chronic (4) Atrial fibrillation with rapid ventricular response Status: Resolved (5) Chest pain Status: Resolved (6) Paroxysmal atrial fibrillation Status: Chronic Specialty Discharge - Follow Up or Referrals Follow up with: Saw Payne MD [Physician] - 2 Weeks (with EKG and CBC.) Discharge Plan - Discharge Data Disposition: Disch To Home/Self Care Condition at Discharge: Stable Discharge Diet: heart healthy, low fat, low cholesterol Activity: resume usual activities as tolerated Hygiene: no restrictions Weight Bearing at Discharge: weight bear as tolerated Driving: no restrictions Contact your physician if you experience:: fever over 101, Difficulty voiding, Redness or swelling, Nausea/Vomiting, Shortness of breath, Bleeding, pain uncontrolled by pain medications - Discharge Medications New Ascorbic Acid Tab [Vitamin C Tab] 1,000 mg PO BID #60 tablet Atorvastatin [Lipitor] 20 mg PO BEDTIME #30 tablet Metoprolol Succinate Xl [Toprol Xl] 25 mg PO DAILY #30 tablet Apixaban [Eliquis] 5 mg PO BID #60 tablet Diltiazem Cd Cap [Cardizem CD] 120 mg PO DAILY #30 capsule Continue Aspirin [Children's Aspirin] 81 mg PO QAM Ranitidine Tab [Zantac Tab] 150 mg PO BID Magnesium Chloride [Slow Mag] 128 mg PO TID Albuterol Sulfate [Proair HFA] 2 puff INH Q6H PRN PRN Reason: Shortness Of Breath/Wheezing Citalopram Hydrobromide [Celexa] 10 mg PO DAILY PRN PRN Reason: DEPRESSION Discontinued Apixaban [Eliquis] 5 mg PO BID Amiodarone HCl [Amiodarone HCl] 200 mg PO DAILY - Follow Up or Referral Follow Up: Saw Payne MD [Physician] - 2 Weeks (with EKG ) - Forms/Instructions Exam - Constitutional Vitals: Period Temp Pulse Resp BP Sys/Cosme Pulse Ox Last 24 Hr 97.5 F-98.4 F 51-59 18-20 103-130/52-76 95-100 Exam: General: Present: Appears Well, No Apparent Distress. Pleasant and cooperative. HEENT: Present: PERRL, Normocephaly, atraumatic. Mucus Membranes Moist. No jaundice noted. Conjunctiva moist and clear. Neck: Present: Supple Neck, Midline Trachea, No Masses, No Bruit, No tenderness Cardiac: Present: Regular Rate and Rhythm, No Murmur Lungs: Present: scant bibasilar rales, otherwise clear to auscultation bilaterally, no wheezes, rhonchi. Neuro: Present: Awake, alert, and oriented x3. Moves all extremities well without hemiparesis or paralysis. Grossly Intact. Absent: Resting Tremor, Essential Tremor Abdomen: Present: Soft, Active Bowel Sounds, No Masses, Non-Tender, nondistended. No abdominal bruit or thrill noted. Skin: Present: Clear. Absent: Rash, No skin breakdown. Back: Normal inspection, no vertebral tenderness. Musculoskeletal: Present: No Fluid Collection, No Pain, Normal Range of Motion Extremities: Present: Normal Gait, No Clubbing, No Cyanosis, Upper Extr. Pulses 2+, Lower Extr. Pulses 2+, Trace pitting edema to BLE. Capillary refill less than 3 seconds. Discharge Results Procedures and tests throughout hospitalization: Pending Orders 03/07/17 04:00 Basic Metabolic Panel w/Mg IN AM Comp Blood Count Auto Diff IN AM 03/08/17 04:00 Basic Metabolic Panel w/Mg IN AM Comp Blood Count Auto Diff IN AM 03/09/17 04:00 Basic Metabolic Panel w/Mg IN AM Comp Blood Count Auto Diff IN AM Labs on day of discharge: Labs from last 24 hours 03/06/17 03/06/17 04:29 04:29 WBC 8.8 RBC 4.87 Hgb 13.0 L Hct 40.8 L MCV 83.8 L MCH 27 MCHC 31.9 L RDW 13.0 Plt Count 230 MPV 11.6 Neut % (Auto) 62.9 Lymph % (Auto) 23.6 [place] % (Auto) 9.6 Eos % (Auto) 3.0 Baso % (Auto) 0.3 Neut # (Auto) 5.5 Lymph # (Auto) 2.1 [place] # (Auto) 0.9 H Eos # (Auto) 0.3 Baso # (Auto) 0.0 Immature Gran % 0.6 Nucleated RBC % 0.0 Immature Gran # 0.05 Nucleated RBCs # 0.00 Sodium 139 Potassium 3.6 Chloride 102 Carbon Dioxide 29 Anion Gap 11.6 BUN 19 H Creatinine 1.30 GFR Calculation 95 BUN/Creatinine Ratio 14.00 Glucose 87 Calculated Osmolality 277.5 Calcium 8.3 L Magnesium 2.2 Triglycerides 107 Cholesterol 174 LDL Cholesterol 113.0 VLDL Cholesterol 21.4 HDL Cholesterol 31 L Heart Disease Risk Ratio 5.61 - Imaging and Cardiology Procedure: Chest x-ray: report reviewed by me, Ultrasound: report reviewed by me DS: Provider Date of admission: 03/02/17 22:24 Primary care physician: Monse Paula MD Attending physician on admission: Dexter Laird Discharging clinician: Aundrea Mcdonough NP Expected date of discharge: 03/06/17
[2017-03-07] MEDS ORDERED: ASPIRIN EC 81 MG TABLET PO SCH (09:00)
== END 2017-03-06 17:07 | disposition home or self-care (01) | DRG 309 ==
LOC: EDUNIT# → EDBD → N.ED 19:45 → N.EDINP 22:24 → N.CC 22:59 → N.TELEN 03-03 14:13
PROVIDERS: ADMIT Internal Medicine Cardiovascular Disease; ATTEND Internal Medicine Cardiovascular Disease

== ENCOUNTER 2018-07-11 14:56 | Observation (INO) ==
[2018-07-11] MEDS ORDERED: ALBUTEROL/IPRATROPIUM 3 ML NEB RESP TX STA (15:15)
[2018-07-11 16:19] LABS: Basophils % 0.5 % (0.0-0.8); Eosinophils # 0.3 10*3/uL (0.0-0.87); Eosinophils % 3.3 % (0.00-10.9); Hematocrit 45.4 VOL% (42.0-52.0); Hemoglobin 13.9 GM/DL (14.0-18.0); Immature Granulocytes % 0.4 %; Immature Granulocytes Absolute 0.03 #; Mean Corpuscular HGB Conc 30.6 GM/DL (32-36); Mean Corpuscular Hemoglobin 26 PG (27-34); Mean Corpuscular Volume 86.1 FL (87-102); Mean Platelet Volume 10.6 FL (9.6-12.0); Monocytes # 0.7 10*3/uL (0.11-0.8); Monocytes % 9.6 % (1.7-12.7); Neutrophils # 4.5 10*3/uL (1.4-7.4); Neutrophils % 59.2 % (38.7-73.9); Platelet Count 245 T/CUMM (130-400); Red Blood Count 5.27 MC/CUMM (3.8-5.5); Red Cell Distribution Width 13.1 % (9.3-17.3); White Blood Count 7.5 T/CUMM (4-12)
[2018-07-11 16:45] LABS: Alanine Aminotransferase 28 U/L (16-61); Albumin 3.4 G/DL (3.4-5.0); Alkaline Phosphatase 116 U/L (45-117); Aspartate Amino Transferase 24 U/L (0-37); Bilirubin,Total < 0.39 MG/DL (0.2-1.0); Blood Urea Nitrogen 12 MG/DL (7-18); Glucose 99 MG/DL (74-106); Osmolality,Calculated 280.3 MOS/KG (273-304); Potassium 4.4 MMOL/L (3.5-5.1); Sodium 141 MMOL/L (136-145); Total Protein 7.5 G/DL (6.4-8.3)
[2018-07-11] MEDS ORDERED: ACETAMINOPHEN 325 MG TABLET PO PRN (18:13)
[2018-07-11] MEDS ORDERED: ONDANSETRON 4 MG/2 ML VIAL IV PRN (18:13)
[2018-07-11] MEDS ORDERED: ALBUTEROL 2.5 MG/3 ML NEB RESP TX PRN (18:18)
[2018-07-11] MEDS ORDERED: ENOXAPARIN 40 MG/0.4 ML SYRINGE SUBCUT SCH (21:00)
[2018-07-11] MEDS ORDERED: ATORVASTATIN 20 MG TABLET PO SCH (21:00)
[2018-07-11] MEDS: ASCORBIC ACID 500 MG TABLET PO SCH (22:51)
[2018-07-11] MEDS: APIXABAN 5 MG TABLET PO SCH (22:51)
[2018-07-11] MEDS: FAMOTIDINE 20 MG TABLET PO SCH (22:51)
[2018-07-11] MEDS: MAGNESIUM CHLORIDE 64 MG TABLET PO SCH (22:51)
[2018-07-12] MEDS: NITROGLYCERIN 2% OINT 1 INCH/GM PACK TOP SCH ×3 (01:23→12:25)
[2018-07-12 05:10] LABS: Basophils % 0.5 % (0.0-0.8); Eosinophils # 0.3 10*3/uL (0.0-0.87); Eosinophils % 4.2 % (0.00-10.9); Hematocrit 40.3 VOL% (42.0-52.0); Hemoglobin 12.6 GM/DL (14.0-18.0); Immature Granulocytes % 0.5 %; Immature Granulocytes Absolute 0.03 #; Lymphocytes # 1.9 10*3/uL (1.4-4.0); Lymphocytes % 28.9 % (21.2-54.2); Mean Corpuscular HGB Conc 31.3 GM/DL (32-36); Mean Corpuscular Hemoglobin 27 PG (27-34); Mean Corpuscular Volume 86.3 FL (87-102); Mean Platelet Volume 11.1 FL (9.6-12.0); Monocytes # 0.6 10*3/uL (0.11-0.8); Neutrophils # 3.7 10*3/uL (1.4-7.4); Neutrophils % 56.9 % (38.7-73.9); Platelet Count 221 T/CUMM (130-400); Red Blood Count 4.67 MC/CUMM (3.8-5.5); Red Cell Distribution Width 13.2 % (9.3-17.3); White Blood Count 6.4 T/CUMM (4-12)
[2018-07-12 05:22] LABS: Calcium 8.5 MG/DL (8.5-10.1); Osmolality,Calculated 283.1 MOS/KG (273-304); Potassium 3.9 MMOL/L (3.5-5.1); Risk Ratio 4.54; VLDL CHOLESTEROL 15.6 MG/DL
[2018-07-12] MEDS ORDERED: ASPIRIN EC 81 MG TABLET PO SCH (09:00)
[2018-07-12] MEDS ORDERED: AMIODARONE 200 MG TABLET PO SCH (09:00)
[2018-07-12] MEDS: ASCORBIC ACID 500 MG TABLET PO SCH (09:11)
[2018-07-12] MEDS: APIXABAN 5 MG TABLET PO SCH (09:12)
[2018-07-12] MEDS: MAGNESIUM CHLORIDE 64 MG TABLET PO SCH (09:12)
[2018-07-12] MEDS: FAMOTIDINE 20 MG TABLET PO SCH (09:12)
[2018-07-12] MEDS: GABAPENTIN 100 MG CAPSULE PO SCH ×2 (09:16→15:17)
[2018-07-12] MEDS ORDERED: ACETAMINOPHEN 325 MG TABLET PO SCH (09:30)
[2018-07-12] MEDS ORDERED: KETOROLAC 30 MG/1 ML VIAL IV ONE (11:04)
[2018-07-12 18:12] VITALS: BP 134/72
== END 2018-07-12 18:30 | disposition home or self-care (01) ==
LOC: N.ED 14:56 → N.TELES 14:56 → SUATTDRO 18:13 → N.TELES 20:28
PROVIDERS: ADMIT Internal Medicine; ATTEND Internal Medicine

== ENCOUNTER 2021-03-06 09:49 | Observation (INO) ==
[2021-03-06 10:47] LABS: Basophils % 0.3 % (0.0-0.8); Eosinophils # 0.1 10*3/uL (0.0-0.87); Hematocrit 42.7 VOL% (42.0-52.0); Immature Granulocytes % 0.6 %; Immature Granulocytes Absolute 0.04 #; Lymphocytes # 1.3 10*3/uL (1.4-4.0); Lymphocytes % 18.8 % (21.2-54.2); Mean Corpuscular HGB Conc 30.4 GM/DL (32-36); Mean Corpuscular Volume 86.4 FL (87-102); Mean Platelet Volume 10.6 FL (9.6-12.0); Monocytes % 13.1 % (1.7-12.7); Neutrophils % 66.2 % (38.7-73.9); Platelet Count 210 T/CUMM (130-400); Red Blood Count 4.94 MC/CUMM (3.8-5.5); Red Cell Distribution Width 13.5 % (9.3-17.3); White Blood Count 6.9 T/CUMM (4-12)
[2021-03-06 11:02] LABS: Albumin 3.1 G/DL (3.4-5.0); Bilirubin,Total 0.6 MG/DL (0.20-1.00); Calcium 8.7 MG/DL (8.5-10.1); Potassium 3.9 MMOL/L (3.5-5.1); Total Protein 7.6 G/DL (6.4-8.2)
[2021-03-06] MEDS ORDERED: GLUCAGON 1 MG VIAL IM PRN (12:37)
[2021-03-06] MEDS ORDERED: DEXTROSE 50% 25 GM/50 ML VIAL IV PRN (12:37)
[2021-03-06] MEDS ORDERED: ONDANSETRON 4 MG/2 ML VIAL IV PRN (12:42)
[2021-03-06] MEDS ORDERED: ALBUTEROL 2.5 MG/3 ML NEB RESP TX PRN (12:51)
[2021-03-06] MEDS: GABAPENTIN 100 MG CAPSULE PO SCH ×2 (15:32→22:37)
[2021-03-06] MEDS: ACYCLOVIR 40 MG/ML 30 ML/BOTTLE PO SCH ×2 (15:32→22:39)
[2021-03-06] MEDS ORDERED: ATORVASTATIN 20 MG TABLET PO SCH (21:00)
[2021-03-06] MEDS: APIXABAN 5 MG TABLET PO SCH (22:37)
[2021-03-06] MEDS: MAGNESIUM CHLORIDE 64 MG TABLET PO SCH (22:37)
[2021-03-06] MEDS: ASCORBIC ACID 500 MG TABLET PO SCH (22:37)
[2021-03-06] MEDS: NAPROXEN 500 MG TABLET PO SCH (22:38)
[2021-03-07 05:11] LABS: Basophils % 0.3 % (0.0-0.8); Eosinophils # 0.1 10*3/uL (0.0-0.87); Eosinophils % 1.8 % (0.00-10.9); Hematocrit 38.6 VOL% (42.0-52.0); Immature Granulocytes % 0.5 %; Immature Granulocytes Absolute 0.03 #; Lymphocytes # 1.6 10*3/uL (1.4-4.0); Lymphocytes % 25.5 % (21.2-54.2); Mean Corpuscular HGB Conc 31.1 GM/DL (32-36); Mean Platelet Volume 10.9 FL (9.6-12.0); Monocytes % 13.5 % (1.7-12.7); Neutrophils % 58.4 % (38.7-73.9); Platelet Count 184 T/CUMM (130-400); Red Blood Count 4.49 MC/CUMM (3.8-5.5); Red Cell Distribution Width 13.3 % (9.3-17.3); White Blood Count 6.2 T/CUMM (4-12)
[2021-03-07 05:53] LABS: Anisocytosis Slight; Band Neutrophils 2 % (0-10); Eosinophils 1 % (0-10); Lymphocytes 24 % (20-55); Nucleated Red Blood Cells 1 (0-5); Platelet Estimate Normal; Segmented Neutrophils 61 % (50-85); Total Cells Counted 100
[2021-03-07 05:59] LABS: Albumin 2.7 G/DL (3.4-5.0); Calcium 8.3 MG/DL (8.5-10.1); Osmolality,Calculated 272.7 MOS/KG (273-304); Potassium 3.8 MMOL/L (3.5-5.1); Total Protein 6.7 G/DL (6.4-8.2)
[2021-03-07] MEDS ORDERED: PANTOPRAZOLE 40 MG TABLET PO SCH (09:00)
[2021-03-07] MEDS ORDERED: AMIODARONE 200 MG TABLET PO SCH (09:00)
[2021-03-07] MEDS ORDERED: ASPIRIN EC 81 MG TABLET PO SCH (09:00)
[2021-03-07] MEDS: APIXABAN 5 MG TABLET PO SCH (10:43)
[2021-03-07] MEDS: NAPROXEN 500 MG TABLET PO SCH (10:44)
[2021-03-07] MEDS: MAGNESIUM CHLORIDE 64 MG TABLET PO SCH (10:44)
[2021-03-07] MEDS: GABAPENTIN 100 MG CAPSULE PO SCH ×2 (10:44→16:56)
[2021-03-07] MEDS: ASCORBIC ACID 500 MG TABLET PO SCH (10:44)
[2021-03-07] MEDS: ACYCLOVIR 40 MG/ML 30 ML/BOTTLE PO SCH ×2 (10:44→16:56)
[2021-03-07 17:54] VITALS: BP 127/75
== END 2021-03-07 17:58 | disposition home or self-care (01) ==
LOC: N.ED 09:49 → N.EDINP 09:49 → SUATTDRO 12:37 → N.3E 14:07
PROVIDERS: ADMIT Internal Medicine; ATTEND Internal Medicine

== ENCOUNTER 2022-06-20 10:21 | Observation (INO) ==
[2022-06-20 11:23] LABS: Albumin 3.3 G/DL (3.4-5.0); Bilirubin,Total 0.4 MG/DL (0.20-1.00); Calcium 8.8 MG/DL (8.5-10.1); Osmolality,Calculated 280.3 MOS/KG (273-304); Potassium 4.5 MMOL/L (3.5-5.1); Total Protein 7.4 G/DL (6.4-8.2)
[2022-06-20 12:11] LABS: PT Patient Result 11.2 SECS (10.1-12.1); Partial Thromboplastin Time 32.8 SECS (23.7-32.9)
[2022-06-20 12:51] LABS: Basophils % 0.6 % (0.0-0.8); Eosinophils # 0.2 10*3/uL (0.0-0.87); Eosinophils % 3.1 % (0.00-10.9); Hematocrit 44.1 VOL% (42.0-52.0); Hemoglobin 13.7 GM/DL (14.0-18.0); Immature Granulocytes % 0.3 %; Immature Granulocytes Absolute 0.02 #; Lymphocytes # 1.8 10*3/uL (1.4-4.0); Lymphocytes % 27.7 % (21.2-54.2); Mean Corpuscular HGB Conc 31.1 GM/DL (32-36); Mean Corpuscular Volume 85.5 FL (87-102); Mean Platelet Volume 10.8 FL (9.6-12.0); Monocytes # 0.6 10*3/uL (0.11-0.8); Monocytes % 9.3 % (1.7-12.7); Platelet Count 215 T/CUMM (130-400); Red Blood Count 5.16 MC/CUMM (3.8-5.5); Red Cell Distribution Width 13.5 % (9.3-17.3); White Blood Count 6.5 T/CUMM (4-12)
[2022-06-20] MEDS ORDERED: ACETAMINOPHEN 325 MG TABLET PO PRN (13:58)
[2022-06-20] MEDS ORDERED: CALCIUM CARBONATE CHEW 500 MG TABLET PO PRN (13:58)
[2022-06-20] MEDS ORDERED: BISACODYL 5 MG TABLET PO PRN (13:58)
[2022-06-20] MEDS ORDERED: ALUMINUM/MAGNES/SIMETH MAX STR 30 ML UDCUP PO PRN (13:58)
[2022-06-20] MEDS ORDERED: ZALEPLON 5 MG CAPSULE PO PRN (13:58)
[2022-06-20] MEDS ORDERED: LACTULOSE 20 GM/30 ML UDCUP PO PRN (13:58)
[2022-06-20] MEDS ORDERED: guaiFENesin/DM ER 600-30 MG TABLET PO PRN (13:58)
[2022-06-20] MEDS ORDERED: ONDANSETRON 4 MG/2 ML VIAL IV PRN (13:58)
[2022-06-20] MEDS ORDERED: SIMETHICONE CHEW 125 MG TABLET PO PRN (13:58)
[2022-06-20 15:13] LABS: Albumin 3.2 G/DL (3.4-5.0); Bilirubin,Total 0.4 MG/DL (0.20-1.00); Calcium 8.8 MG/DL (8.5-10.1); Osmolality,Calculated 281.1 MOS/KG (273-304); Potassium 4.2 MMOL/L (3.5-5.1); Total Protein 7.6 G/DL (6.4-8.2)
[2022-06-20] MEDS ORDERED: ATORVASTATIN 20 MG TABLET PO SCH (21:00)
[2022-06-20 21:30] LABS: Bilirubin,Urine Negative (Negative); Blood, Urine Negative (Negative); Glucose,Urine (UA) Negative (Negative); Ketones,Urine Negative (Negative); Mucus,Urine Occasional /LPF (Occasional); Nitrite,Urine Negative (Negative); Protein,Urine Negative (Negative); RBC,Urine 2 /HPF (0-4); Squamous Epithelial Cell,Urine Occasional /HPF (0-10); Urine Appearance CLEAR (Clear); Urine Color Yellow (Yellow); Urine Specific Gravity 1.019 (1.001-1.035); Urine Urobilinogen < 2.0 eU/dL (<2.0)
[2022-06-20] MEDS: ENOXAPARIN 120 MG/0.8 ML SYRINGE SUBCUT SCH (21:57)
[2022-06-20] MEDS: ASCORBIC ACID 500 MG TABLET PO SCH (21:58)
[2022-06-21 06:25] LABS: Basophils % 0.3 % (0.0-0.8); Eosinophils # 0.2 10*3/uL (0.0-0.87); Eosinophils % 3.5 % (0.00-10.9); Hematocrit 43.3 VOL% (42.0-52.0); Hemoglobin 13.4 GM/DL (14.0-18.0); Immature Granulocytes % 0.2 %; Immature Granulocytes Absolute 0.01 #; Lymphocytes # 1.6 10*3/uL (1.4-4.0); Mean Corpuscular HGB Conc 30.9 GM/DL (32-36); Mean Corpuscular Volume 85.9 FL (87-102); Mean Platelet Volume 10.4 FL (9.6-12.0); Monocytes # 0.5 10*3/uL (0.11-0.8); Monocytes % 8.6 % (1.7-12.7); Neutrophils % 60.4 % (38.7-73.9); Platelet Count 185 T/CUMM (130-400); Red Blood Count 5.04 MC/CUMM (3.8-5.5); Red Cell Distribution Width 13.4 % (9.3-17.3); White Blood Count 6.1 T/CUMM (4-12)
[2022-06-21 06:52] LABS: Calcium 8.4 MG/DL (8.5-10.1); Osmolality,Calculated 278.4 MOS/KG (273-304); Potassium 4.3 MMOL/L (3.5-5.1); Thyroid Stimulating Hormone 1.64 uIU/ml (0.358-3.74)
[2022-06-21] MEDS ORDERED: ALBUTEROL 2.5 MG/3 ML NEB RESP TX SCH (07:00)
[2022-06-21] MEDS ORDERED: PANTOPRAZOLE 40 MG TABLET PO SCH (09:00)
[2022-06-21] MEDS ORDERED: amLODIPine 5 MG TABLET PO SCH (09:00)
[2022-06-21] MEDS ORDERED: ZINC GLUCONATE 50 MG TABLET PO SCH (09:00)
[2022-06-21] MEDS ORDERED: MAGNESIUM CHLORIDE 64 MG TABLET PO SCH (09:00)
[2022-06-21] MEDS ORDERED: AMIODARONE 200 MG TABLET PO SCH ×2 (09:00→11:30)
[2022-06-21] MEDS ORDERED: ASPIRIN EC 81 MG TABLET PO SCH (09:00)
[2022-06-21 11:48] VITALS: BP 144/94
[2022-06-21] MEDS: ASCORBIC ACID 500 MG TABLET PO SCH (14:31)
[2022-06-21] MEDS: ENOXAPARIN 120 MG/0.8 ML SYRINGE SUBCUT SCH (14:31)
== END 2022-06-21 14:38 | disposition home or self-care (01) ==
LOC: N.ED 10:21 → N.EDINP 10:21 → N.2W 19:18
PROVIDERS: ADMIT Internal Medicine Cardiovascular Disease; ATTEND Internal Medicine Cardiovascular Disease